=== PATIENT | male | born 1985 | race Caucasian/White ===

== ENCOUNTER 2016-12-07 00:56 | Emergency (ER) | payer SELFPAY ==
[~2016-12-07] VITALS: Ht 180.3 cm; Wt 90.8 kg
[~2016-12-07 00:56] MED LIST: TYLE3 PO; Z.0.NO CURRENT MEDS
[2016-12-07 01:02] VITALS: BP 119/67; PULSE 96; RESP 20; TEMP 97.4; O2SAT 98
[2016-12-07 01:15] VITALS: BP 131/67; PULSE 96; RESP 18; O2SAT 97
== END 2016-12-07 01:29 | disposition left against medical advice (07) ==
LOC: PHEFT 00:56
DX: S09.90XA Unspecified injury of head, initial encounter (principal); W19.XXXA Unspecified fall, initial encounter
CPT/HCPCS: 99281